=== PATIENT | female | born 1980 | race Caucasian/White ===

== ENCOUNTER 2017-12-30 06:04 | Emergency (ER) | payer BC ==
[2017-12-30 06:13] VITALS: BP 123/81
[2017-12-30] MEDS ORDERED: Ondansetron 4 MG Tab.DIS PO ONE (06:28)
--- NOTE | 2017-12-30 06:34 | EDM.PDOC ---
ED HPI GENERAL MEDICAL PROBLEM - General Chief Complaint: Abdominal Pain Stated Complaint: ABDOMINAL PAIN Time Seen by Provider: 12/30/17 06:22 Source of Information: Reports: Patient History Limitations: Reports: No Limitations - History of Present Illness INITIAL COMMENTS - FREE TEXT/NARRATIVE: The patient presents with nausea, lower abdominal pain, and diarrhea. This all started about a week ago. She had some abdominal pain and diarrhea. The diarrhea is better but she still has some nausea but no vomiting and lower abdominal pain. She has no fever but she does have chills. She has no cough, congestion or runny nose. She does have left ear pain. She has no dysuria or hematuria. She does not think she ate any bad food. She has not been aroudn any one who is sick. She still has her gallbladder and appendix. Onset: Gradual Duration: Week(s): (1) Location: Reports: Abdomen Quality: Reports: Other (crampy) Severity: Mild Improves with: Reports: None Worsens with: Reports: None Associated Symptoms: Reports: Fever/Chills, Nausea/Vomiting. Denies: Chest Pain , Cough, Headaches, Shortness of Breath Middle Abdomen Pain Score (Numeric/FACES): 6 - Related Data Allergies Allergy/AdvReac Type Severity Reaction Status Date / Time No Known Allergies Allergy Verified 08/13/15 02:25 Home Meds: Home Meds Ondansetron [Zofran ODT] 4 mg PO Q6H PRN #20 tab.dis 12/30/17 [Rx] Past Medical History - Past Health History Medical/Surgical History: Denies Medical/Surgical History Social & Family History - Family History Family Medical History: Noncontributory - Tobacco Use Smoking Status *Q: Never Smoker - Caffeine Use Caffeine Use: Reports: None - Recreational Drug Use Recreational Drug Use: No ED ROS GENERAL - Review of Systems Review Of Systems: See Below Constitutional: Reports: Chills. Denies: Fever HEENT: Reports: Ear Pain (left) Respiratory: Reports: No Symptoms Cardiovascular: Reports: No Symptoms Endocrine: Reports: No Symptoms GI/Abdominal: Reports: Abdominal Pain, Diarrhea, Nausea. Denies: Vomiting : Reports: No Symptoms Musculoskeletal: Reports: No Symptoms Skin: Reports: No Symptoms ED EXAM, GI/ABD - Physical Exam Exam: See Below Exam Limited By: No Limitations General Appearance: Alert, No Apparent Distress Ears: Normal External Exam, Other (Mild erythema of the left canal) Nose: Normal Inspection Head: Atraumatic, Normocephalic Neck: Normal Inspection Respiratory/Chest: No Respiratory Distress, Lungs Clear, Normal Breath Sounds Cardiovascular: Regular Rate, Rhythm, No Edema, No Murmur GI/Abdominal Exam: Soft, No Organomegaly, No Mass, Tender (Mild tenderness to the lower abdomen) Back Exam: Normal Inspection Extremities: Normal Inspection Course - Vital Signs Last Recorded V/S: Last Vital Signs Temp 97.8 F 12/30/17 06:09 Pulse 87 12/30/17 06:09 Resp 18 12/30/17 06:09 BP 123/81 12/30/17 06:09 Pulse Ox 100 12/30/17 06:09 - Orders/Labs/Meds Orders: Active Orders 24 hr Category Date Time Status Abdomen 1V Upright [CR] Stat Exams 12/30/17 06:27 Ordered CBC WITH AUTO DIFF [HEME] Stat Lab 12/30/17 06:35 Results FE, TIBC, TRANSFERRIN, FE SAT [CHEM] Stat Lab 12/30/17 07:09 Ordered HCG QUALITATIVE,SERUM [CHEM] Stat Lab 12/30/17 06:35 Received UA W/MICROSCOPIC [URIN] Stat Lab 12/30/17 06:27 Ordered Labs: Laboratory Tests 12/30/17 12/30/17 Range/Units 06:35 06:35 WBC 5.46 (3.98-10.04) K/mm3 RBC 4.52 (3.98-5.22) M/mm3 Hgb 9.9 L (11.2-15.7) gm/L Hct 32.1 L (34.1-44.9) % MCV 71.0 L (79.4-94.8) fl MCH 21.9 L (25.6-32.2) pg MCHC 30.8 L (32.2-35.5) g/dl RDW Std Deviation 43.5 (36.4-46.3) fL Plt Count 322 (182-369) K/mm3 MPV 10.4 (9.4-12.3) fl Neut % (Auto) 53.6 (34.0-71.1) % Lymph % (Auto) 28.6 (19.3-51.7) % [place] % (Auto) 14.5 H (4.7-12.5) % Eos % (Auto) 2.7 (0.7-5.8) Baso % (Auto) 0.4 (0.1-1.2) % Neut # (Auto) 2.93 (1.56-6.13) K/mm3 Lymph # (Auto) 1.56 (1.18-3.74) K/mm3 [place] # (Auto) 0.79 H (0.24-0.36) K/mm3 Eos # (Auto) 0.15 (0.04-0.36) K/mm3 Baso # (Auto) 0.02 (0.01-0.08) K/mm3 Sodium 138 (136-145) mEq/L Potassium 3.2 L (3.5-5.1) mEq/L Chloride 105 (98-107) mEq/L Carbon Dioxide 21 (21-32) mEq/L Anion Gap 15.2 H (5-15) BUN 11 (7-18) mg/dL Creatinine 0.9 (0.55-1.02) mg/dL Est Cr Clr Drug Dosing 83.23 mL/min Estimated GFR (MDRD) > 60 (>60) mL/min BUN/Creatinine Ratio 12.2 L (14-18) Glucose 154 H (74-106) mg/dL Calcium 9.0 (8.5-10.1) mg/dL Total Bilirubin 0.2 (0.2-1.0) mg/dL AST 11 L (15-37) U/L ALT 48 (14-59) U/L Alkaline Phosphatase 108 (46-116) U/L Total Protein 7.7 (6.4-8.2) g/dl Albumin 3.4 (3.4-5.0) g/dl Globulin 4.3 gm/dL Albumin/Globulin Ratio 0.8 L (1-2) Lipase 129 (73-393) U/L Meds: Medications Discontinued Medications Generic Name Dose Route Start Last Admin Trade Name Freq PRN Reason Stop Dose Admin Ondansetron HCl 4 mg 12/30/17 06:28 12/30/17 06:33 Zofran Odt PO 12/30/17 06:29 4 mg ONETIME ONE Administration - Re-Assessments/Exams Free Text/Narrative Re-Assessment/Exam: 12/30/17 06:33 I ordered zofran 4mg ODT, labs, UA and an x-ray of her abdomen. 12/30/17 07:13 Her x-ray looks good. Her WBC was normal. Her Hgb was low at 9.9. It is a microcytic anemia. I have added some labs. I will have her take some iron. The rest of her labs look good. I will discharge her home with some zofran. Departure - Departure Time of Disposition: 07:15 Disposition: Home, Self-Care 01 Condition: Good Clinical Impression: Gastroenteritis Anemia Qualifiers: Anemia type: iron deficiency Iron deficiency anemia type: unspecified iron deficiency Qualified Code(s): D50.9 - Iron deficiency anemia, unspecified - Discharge Information Prescriptions: Ondansetron [Zofran ODT] 4 mg PO Q6H PRN #20 tab.dis PRN Reason: Nausea\vomiting Referrals: Carlos Purvis MD [Primary Care Provider] - 1 Week Forms: ED Department Discharge, ED Return to Work/School Form Additional Instructions: Take an iron supplement daily. Drink plenty of fluids. Take the zofran every 6 hours as needed for nausea or vomiting. Please return if you are worse. - My Orders Last 24 Hours: My Active Orders 12/30/17 06:27 Abdomen 1V Upright [CR] Stat UA W/MICROSCOPIC [URIN] Stat 12/30/17 06:35 CBC WITH AUTO DIFF [HEME] Stat HCG QUALITATIVE,SERUM [CHEM] Stat 12/30/17 07:09 FE, TIBC, TRANSFERRIN, FE SAT [CHEM] Stat - Assessment/Plan Last 24 Hours: My Active Orders 12/30/17 06:27 Abdomen 1V Upright [CR] Stat UA W/MICROSCOPIC [URIN] Stat 12/30/17 06:35 CBC WITH AUTO DIFF [HEME] Stat HCG QUALITATIVE,SERUM [CHEM] Stat 12/30/17 07:09 FE, TIBC, TRANSFERRIN, FE SAT [CHEM] Stat
--- NOTE | 2017-12-30 08:33 | CR ---
Abdomen: Upright view of the abdomen was obtained. Comparison: No prior abdominal x-ray. Bowel gas pattern appears normal. No abnormal calcifications or soft tissue abnormality is seen. No free air is seen. Bony structures are unremarkable. Impression: 1. Unremarkable upright abdominal x-ray. Diagnostic code #1
== END 2017-12-30 07:31 | disposition home or self-care (01) ==
LOC: JD.ED 06:04
DX: K52.9 Noninfective gastroenteritis and colitis, unspecified (principal); D50.9 Iron deficiency anemia, unspecified
CPT/HCPCS: 36415; 74018; 80053; 83540; 83690; 84466; 84703; 85025; 99284; A9270

== ENCOUNTER 2019-05-01 06:35 | Inpatient (IN) | payer BC ==
[~2019-05-01 06:35] MED LIST: Lactated Ringers 1,000 ML IV SCH; Lidocaine 1%/Sod Bicarbonate in NS 8.4% 1 ML Syringe IDERM PRN; Sodium Chloride 0.9% 10 ML Syringe FLUSH PRN
[2019-05-01] MEDS ORDERED: Ondansetron 4 MG/2 ML SDV ONE (07:22)
[2019-05-01] MEDS ORDERED: ceFAZolin 1 GM Vial ONE (07:22)
[2019-05-01] MEDS ORDERED: Rocuronium 50 MG/5 ML Vial ONE (07:22)
[2019-05-01] MEDS ORDERED: Lactated Ringers 1,000 ML ONE (07:22)
[2019-05-01] MEDS ORDERED: Lidocaine 1% 4 ML ONE (07:22)
[2019-05-01] MEDS ORDERED: Midazolam 1 MG/ML 2 ML SDV ONE (07:23)
[2019-05-01] MEDS ORDERED: fentaNYL 250 MCG/5 ML SDV ONE (07:23)
[2019-05-01] MEDS ORDERED: Dexamethasone 4 MG/ML 5 ML MDV ONE (07:23)
[2019-05-01] MEDS ORDERED: Propofol 200 MG/20 ML SDV ONE (07:23)
[2019-05-01] MEDS ORDERED: Ketorolac 30 MG/ML SDV ONE (07:23)
[2019-05-01] MEDS ORDERED: Bupivacaine 0.5% 30 ML SDV ONE (07:31)
[2019-05-01] MEDS ORDERED: Scopolamine 1.5 MG Transdermal Patch TOP ONE (07:45)
--- NOTE | 2019-05-01 07:51 | PCM.PREANE ---
Preanesthetic Assessment - Anesthesia/Transfusion/Family Hx Anesthesia History: No Prior Anesthesia Family History of Anesthesia Reaction: No Transfusion History: No Prior Transfusion(s) - Review of Systems General: No Symptoms Pulmonary: No Symptoms Cardiovascular: No Symptoms Gastrointestinal: No Symptoms Neurological: No Symptoms Other: Reports: None (Anemia Hgb 8.7 this morning, type and cross for 2 units PRBC ordered. ) - Physical Assessment NPO Status Date: 04/30/19 NPO Status Time: 21:00 Vital Signs: Last Vital Signs Temp 37.3 C 05/01/19 06:55 Pulse 64 05/01/19 06:55 Resp 20 05/01/19 06:55 BP 107/58 L 05/01/19 06:55 Pulse Ox 98 05/01/19 06:55 Height: 1.7 m Weight: 74.389 kg ASA Class: 2 Mental Status: Alert & Oriented x3 Airway Class: Mallampati = 2 Dentition: Reports: Normal Dentition Thyro-Mental Finger Breadths: 3 Mouth Opening Finger Breadths: 3 (Jaw will lock at times. ) ROM/Head Extension: Full Lungs: Clear to Auscultation, Normal Respiratory Effort Cardiovascular: Regular Rate, Regular Rhythm - Lab Values: Laboratory Last Values WBC 4.65 K/mm3 (3.98-10.04) 05/01/19 07:17 RBC 4.10 M/mm3 (3.98-5.22) 05/01/19 07:17 Hgb 8.7 gm/dl (11.2-15.7) L D 05/01/19 07:17 Hct 28.8 % (34.1-44.9) L 05/01/19 07:17 MCV 70.2 fl (79.4-94.8) L 05/01/19 07:17 MCH 21.2 pg (25.6-32.2) L 05/01/19 07:17 MCHC 30.2 g/dl (32.2-35.5) L 05/01/19 07:17 RDW Std Deviation 42.5 fL (36.4-46.3) 05/01/19 07:17 Plt Count 308 K/mm3 (182-369) D 05/01/19 07:17 MPV 11.6 fl (9.4-12.3) 05/01/19 07:17 Neut % (Auto) 59.3 % (34.0-71.1) 05/01/19 07:17 Lymph % (Auto) 23.2 % (19.3-51.7) 05/01/19 07:17 [place] % (Auto) 11.0 % (4.7-12.5) 05/01/19 07:17 Eos % (Auto) 5.4 (0.7-5.8) 05/01/19 07:17 Baso % (Auto) 0.9 % (0.1-1.2) 05/01/19 07:17 Neut # (Auto) 2.76 K/mm3 (1.56-6.13) 05/01/19 07:17 Lymph # (Auto) 1.08 K/mm3 (1.18-3.74) L 05/01/19 07:17 [place] # (Auto) 0.51 K/mm3 (0.24-0.36) H 05/01/19 07:17 Eos # (Auto) 0.25 K/mm3 (0.04-0.36) 05/01/19 07:17 Baso # (Auto) 0.04 K/mm3 (0.01-0.08) 05/01/19 07:17 Urine HCG, Qual Negative (NEGATIVE) 05/01/19 06:58 - Allergies Allergies/Adverse Reactions: Allergies Allergy/AdvReac Type Severity Reaction Status Date / Time No Known Allergies Allergy Verified 04/30/19 09:40 - Anesthesia Plan Pre-Op Medication Ordered: Anxiolytic - Acknowledgements Anesthesia Type Planned: General Anesthesia Pt an Appropriate Candidate for the Planned Anesthesia: Yes Alternatives and Risks of Anesthesia Discussed w Pt/Guardian: Yes Pt/Guardian Understands and Agrees with Anesthesia Plan: Yes Additional Comments: Dr. Estrada aware of starting hemoglobin. Type and Cross for 2 units of PRBCs to hold. 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: Other (See Below) Other OB/BYN History: COLPOSCOPY, DYSMENORRHEA, [id number]-PIF SUBSEROUS LEIOMYOMA OF UTERUS, LGSIL, MENORRHAGIA Musculoskeletal History: Reports: None Neurological History: Reports: None Psychiatric History: Reports: None Endocrine/Metabolic History: Reports: None Hematologic History: Reports: Anemia Immunologic History: Reports: None Oncologic (Cancer) History: Reports: None Dermatologic History: Reports: None - Past Surgical History Head Surgeries/Procedures: Reports: None Endocrine Surgical History: Reports: None Neurological Surgical History: Reports: None Musculoskeletal Surgical History: Reports: None Oncologic Surgical History: Reports: None Dermatological Surgical History: Reports: None - SUBSTANCE USE Recreational Drug Use History: No - HOME MEDS Home Medications: Home Meds Ferrous Sulfate [Iron] 325 mg PO DAILY 04/30/19 [History] Ibuprofen 600 mg PO TID PRN 04/30/19 [History] - CURRENT (IN HOUSE) MEDS Current Meds: Current Medications Lactated Ringer's (Ringers, Lactated) 1,000 mls @ 125 mls/hr IV ASDIRECTED DANIA Stop: 05/01/19 23:00 Last Admin: 05/01/19 07:15 Dose: 125 mls/hr Lidocaine/Sodium Bicarbonate (Buffered Lidocaine 1% In Ns 8.4%) 0.25 ml IDERM ONETIME PRN PRN Reason: Prior to IV Start Stop: 05/01/19 18:00 Last Admin: 05/01/19 07:29 Dose: 0.25 ml Sodium Chloride (Saline Flush) 10 ml FLUSH ASDIRECTED PRN PRN Reason: Keep Vein Open Stop: 05/01/19 18:00 Discontinued Medications Bupivacaine HCl (Marcaine 0.5%) Confirm Administered Dose 30 ml .ROUTE .STK-MED ONE Stop: 05/01/19 07:32 Cefazolin Sodium (Ancef) Confirm Administered Dose 2 gm .ROUTE .STK-MED ONE Stop: 05/01/19 07:23 Dexamethasone (Dexamethasone) Confirm Administered Dose 20 mg .ROUTE .STK-MED ONE Stop: 05/01/19 07:24 Fentanyl (Sublimaze) Confirm Administered Dose 250 mcg .ROUTE .STK-MED ONE Stop: 05/01/19 07:24 Lidocaine HCl (Xylocaine-Mpf 1%) Confirm Administered Dose 4 mls @ as directed .ROUTE .STK-MED ONE Stop: 05/01/19 07:23 Lactated Ringer's (Ringers, Lactated) Confirm Administered Dose 1,000 mls @ as directed .ROUTE .STK-MED ONE Stop: 05/01/19 07:23 Ketorolac Tromethamine (Toradol) Confirm Administered Dose 30 mg .ROUTE .STK- MED ONE Stop: 05/01/19 07:24 Midazolam HCl (Versed 1 Mg/Ml) Confirm Administered Dose 2 mg .ROUTE .STK-MED ONE Stop: 05/01/19 07:24 Ondansetron HCl (Zofran) Confirm Administered Dose 4 mg .ROUTE .STK-MED ONE Stop: 05/01/19 07:23 Propofol (Diprivan 20 Ml) Confirm Administered Dose 400 mg .ROUTE .STK-MED ONE Stop: 05/01/19 07:24 Rocuronium Pauline (Zemuron) Confirm Administered Dose 50 mg .ROUTE .STK-MED ONE Stop: 05/01/19 07:23 Scopolamine (Transderm-Scop) 1.5 mg TOP ONETIME ONE Stop: 05/01/19 07:46 Last Admin: 05/01/19 07:48 Dose: 1.5 mg
[2019-05-01] MEDS ORDERED: Ketamine 500 mg/10 ML MDV ONE (08:20)
[2019-05-01] MEDS ORDERED: HYDROmorphone 0.5 MG/0.5 ML Syringe ONE (08:27)
[2019-05-01] MEDS ORDERED: fentaNYL 100 MCG/2 ML SDV IVPUSH PRN (08:34)
[2019-05-01] MEDS ORDERED: Ondansetron 4 MG/2 ML SDV IVPUSH PRN ×2 (08:34→11:09)
[2019-05-01] MEDS ORDERED: HYDROmorphone 0.5 MG/0.5 ML Syringe IVPUSH PRN (08:34)
--- NOTE | 2019-05-01 09:29 | PCM.POSTAN ---
POST ANESTHESIA ASSESSMENT - MENTAL STATUS Mental Status: Alert, Oriented - VITAL SIGNS Vital Signs: Last Vital Signs Temp 37.3 C 05/01/19 06:55 Pulse 64 05/01/19 06:55 Resp 20 05/01/19 06:55 BP 107/58 L 05/01/19 06:55 Pulse Ox 98 05/01/19 06:55 0921 113/68 75 13 96% 98.4F - RESPIRATORY Respiratory Status: Respiratory Rate WNL, Airway Patent, O2 Saturation Stable, Supplemental Oxygen - CARDIOVASCULAR CV Status: Pulse Rate WNL, Blood Pressure Stable - GASTROINTESTINAL GI Status: No Symptoms - PAIN Pain Score: 0 - POST OP HYDRATION Hydration Status: Adequate & Stable
--- NOTE | 2019-05-01 09:36 | PCM.OPNOTE ---
- General Post-Op/Procedure Note Date of Surgery/Procedure: 05/01/19 Operative Procedure(s): Total abdominal hysterectomy bilateral salpingectomy ( neither ovary removed) Pre Op Diagnosis: Anemia, menorrhagia, leiomyomata uteri multiple, LGSIL Pap, [place] 1, menorrhagia Post-Op Diagnosis: Same Anesthesia Technique: General ET Tube Primary Surgeon: Eliazar Estrada Secondary Surgeon: Demetrius Shearer Anesthesia Provider: Gayathri Cristina Estate Attorney: Jorge Crouch (PAS) Estate Attorney: Katia Figueroa (MS3) Reason Estate Attorney Was Necessary: Retraction, Asst. surgery, decrease comorbidity and mortality. Role of Estate Attorney: Retraction, Asst. surgery, decrease comorbidity and mortality. Fluid Replacement, Intraop: 1,300 Output, Urine Amount: 50 EBL in mLs: 100 Drain/Tube Comments:: Villavicencio during surgery removed at end of surgery Complications: None Condition: Good Free Text/Narrative:: Patient was transported to the operating room and placed under general anesthesia with endotracheal intubation supine position. Villavicencio catheter placed gravity drainage. Vaginal prep performed and abdominal prep performed. Patient received Ancef 2 g intravenously prior surgery. SCDs in place and functioning prior surgery. Timeout performed confirming name date of and procedure as total abdominal hysterectomy bilateral salpingectomy and possible removal of one or both ovaries in (neither ovary removed) patient having been prepared and draped in a sterile fashion Pfannenstiel incision was made and care was sharp section to into the anterior fascia peritoneal cavity was entered without difficulty. A medium Jesus retractor was placed. The bowel was packed away with moistened lap tapes 2 with tag these were removed at the end procedure. The uterus was grasped and utilizing Enseal crossclamping and activating and incising the utero-ovarian ligament was transected on the right side. The right fallopian tube was then grasped and elevated and Enseal placed at the mesial salpinx activated and incised and round ligament then crossclamped activated in size with the Enseal. Proceeding caudad crossclamping the broad ligament with the Enseal activating and incising. To the level of the uterine vessels. Same procedure was carried out on the left side. The large fibroid uterus was then transected and the's remaining cervical stump grasped and elevated and utilizing Bartolome clamps crossclamping at the angle bilaterally and incising the vagina was entered without difficulty. Utilizing Jair scissors the remaining cervical stump was removed. The vaginal cuff was then closed with a running locking suture of #1 Vicryl uterosacral cardinal ligaments had also been sutured with #1 Vicryl prior to entry into the vagina. Irrigation was carried out 1 L of saline and 100 mL of distilled water no active bleeding but as a precaution FloSeal was injected at the vaginal cuff to assist in hemostasis. The lap tapes were removed from the abdomen the Jesus retractor was removed. Sponge needle pack and count correct 2. The anterior fascia was closed with #1 PDS running suture. The skin was closed subcuticular 3-0 Monocryl Pop needle. Dermabond Preneo applied. Villavicencio catheter was removed. If patient is unable to void Will replace Villavicencio catheter. I talked with patient's and all questions were answered to his voiced satisfaction. Patient will remain in the hospital overnight.
--- NOTE | 2019-05-01 10:53 | PCM.SN ---
- Free Text/Narrative Note: Resting well. Easily awakened. No vaginal bleeding. Stable. Doing well.
[2019-05-01] MEDS: Acetaminophen/oxyCODONE 325-5 MG Tab PO PRN ×3 (11:32→21:07)
--- NOTE | 2019-05-01 13:02 | PCM48HPAN ---
Post Anesthesia Note - EVALUATION WITHIN 48HRS OF ANESTHETIC Vital Signs in Normal Range: Yes Patient Participated in Evaluation: Yes Respiratory Function Stable: Yes Airway Patent: Yes Cardiovascular Function Stable: Yes Hydration Status Stable: Yes Pain Control Satisfactory: Yes Nausea and Vomiting Control Satisfactory: Yes Mental Status Recovered: Yes Vital Signs: Last Vital Signs Temp 36.8 C 05/01/19 12:02 Pulse 73 05/01/19 11:31 Resp 11 L 05/01/19 10:35 BP 100/74 05/01/19 11:31 Pulse Ox 97 05/01/19 11:31
[2019-05-01] MEDS: Ketorolac 30 MG/ML SDV IVPUSH SCH ×2 (14:26→21:08)
[2019-05-02] MEDS: Ketorolac 30 MG/ML SDV IVPUSH SCH (04:00)
[2019-05-02] MEDS: Acetaminophen/oxyCODONE 325-5 MG Tab PO PRN ×2 (04:01→08:27)
[2019-05-02] MEDS ORDERED: Sodium Chloride 0.9% 250 ML IV SCH (05:15)
[2019-05-02] MEDS ORDERED: Ibuprofen 600 MG Tab PO PRN (09:00)
--- NOTE | 2019-05-02 09:21 | PCM.DCSUM1 ---
Discharge Summary - Hospital Course Free Text/Narrative:: [facility] Post-Op/Procedure Note Patient Name: MARCO A SALEEM Date of : 80 Patient Status: Inpatient Attending Provider: Eliazar Estrada Date: 05/01/19 09:28 Initialization Date: 05/01/19 09:28 - General Post-Op/Procedure Note Date of Surgery/Procedure: 05/01/19 Operative Procedure(s): Total abdominal hysterectomy bilateral salpingectomy ( neither ovary removed) Pre Op Diagnosis: Anemia, menorrhagia, leiomyomata uteri multiple, LGSIL Pap, HILTON 1, menorrhagia Post-Op Diagnosis: Same Anesthesia Technique: General ET Tube Primary Surgeon: Eliazar Estrada Secondary Surgeon: Demetrius Shearer Anesthesia Provider: Gayathri Cristina Flower Cheniller: Jorge Crouch (PAS) Flower Cheniller: Katia Figueroa (MS3) Reason Flower Cheniller Was Necessary: Retraction, Asst. surgery, decrease comorbidity and mortality. Role of Flower Cheniller: Retraction, Asst. surgery, decrease comorbidity and mortality. Fluid Replacement, Intraop: 1,300 Output, Urine Amount: 50 EBL in mLs: 100 Drain/Tube Comments:: Villavicencio during surgery removed at end of surgery Complications: None Condition: Good Free Text/Narrative:: Patient was transported to the operating room and placed under general anesthesia with endotracheal intubation supine position. Villavicencio catheter placed gravity drainage. Vaginal prep performed and abdominal prep performed. Patient received Ancef 2 g intravenously prior surgery. SCDs in place and functioning prior surgery. Timeout performed confirming name date of and procedure as total abdominal hysterectomy bilateral salpingectomy and possible removal of one or both ovaries in (neither ovary removed) patient having been prepared and draped in a sterile fashion Pfannenstiel incision was made and care was sharp section to into the anterior fascia peritoneal cavity was entered without difficulty. A medium Jesus retractor was placed. The bowel was packed away with moistened lap tapes 2 with tag these were removed at the end procedure. The uterus was grasped and utilizing Enseal crossclamping and activating and incising the utero-ovarian ligament was transected on the right side. The right fallopian tube was then grasped and elevated and Enseal placed at the mesial salpinx activated and incised and round ligament then crossclamped activated in size with the Enseal. Proceeding caudad crossclamping the broad ligament with the Enseal activating and incising. To the level of the uterine vessels. Same procedure was carried out on the left side. The large fibroid uterus was then transected and the's remaining cervical stump grasped and elevated and utilizing Bartolome clamps crossclamping at the angle bilaterally and incising the vagina was entered without difficulty. Utilizing Jair scissors the remaining cervical stump was removed. The vaginal cuff was then closed with a running locking suture of #1 Vicryl uterosacral cardinal ligaments had also been sutured with #1 Vicryl prior to entry into the vagina. Irrigation was carried out 1 L of saline and 100 mL of distilled water no active bleeding but as a precaution FloSeal was injected at the vaginal cuff to assist in hemostasis. The lap tapes were removed from the abdomen the Jesus retractor was removed. Sponge needle pack and count correct 2. The anterior fascia was closed with #1 PDS running suture. The skin was closed subcuticular 3-0 Monocryl Pop needle. Dermabond Preneo applied. Villavicencio catheter was removed. If patient is unable to void Will replace Villavicencio catheter. I talked with patient's and all questions were answered to his voiced satisfaction. Patient will remain in the hospital overnight. Did well through the night. Hgb preop 8.7 and this morning after surgery 7.4. Patient pale, and dizziness, given two units packed RBGs. Hgb after completion of both transfusions. Dismiss to see in office in two weeks. HPI Initial Comments: [facility] Post-Op/Procedure Note Patient Name: MARCO A SALEEM Date of : 80 Patient Status: Inpatient Attending Provider: Eliazar Estrada Date: 05/01/19 09:28 Initialization Date: 05/01/19 09:28 - General Post-Op/Procedure Note Date of Surgery/Procedure: 05/01/19 Operative Procedure(s): Total abdominal hysterectomy bilateral salpingectomy ( neither ovary removed) Pre Op Diagnosis: Anemia, menorrhagia, leiomyomata uteri multiple, LGSIL Pap, HILTON 1, menorrhagia Post-Op Diagnosis: Same Anesthesia Technique: General ET Tube Primary Surgeon: Eliazar Estrada Secondary Surgeon: Demetrius Shearer Anesthesia Provider: Gayathri Cristina Flower Cheniller: Jorge Crouch (PAS) Flower Cheniller: Katia Figueroa (MS3) Reason Flower Cheniller Was Necessary: Retraction, Asst. surgery, decrease comorbidity and mortality. Role of Flower Cheniller: Retraction, Asst. surgery, decrease comorbidity and mortality. Fluid Replacement, Intraop: 1,300 Output, Urine Amount: 50 EBL in mLs: 100 Drain/Tube Comments:: Villavicencio during surgery removed at end of surgery Complications: None Condition: Good Free Text/Narrative:: Patient was transported to the operating room and placed under general anesthesia with endotracheal intubation supine position. Villavicencio catheter placed gravity drainage. Vaginal prep performed and abdominal prep performed. Patient received Ancef 2 g intravenously prior surgery. SCDs in place and functioning prior surgery. Timeout performed confirming name date of and procedure as total abdominal hysterectomy bilateral salpingectomy and possible removal of one or both ovaries in (neither ovary removed) patient having been prepared and draped in a sterile fashion Pfannenstiel incision was made and care was sharp section to into the anterior fascia peritoneal cavity was entered without difficulty. A medium Jesus retractor was placed. The bowel was packed away with moistened lap tapes 2 with tag these were removed at the end procedure. The uterus was grasped and utilizing Enseal crossclamping and activating and incising the utero-ovarian ligament was transected on the right side. The right fallopian tube was then grasped and elevated and Enseal placed at the mesial salpinx activated and incised and round ligament then crossclamped activated in size with the Enseal. Proceeding caudad crossclamping the broad ligament with the Enseal activating and incising. To the level of the uterine vessels. Same procedure was carried out on the left side. The large fibroid uterus was then transected and the's remaining cervical stump grasped and elevated and utilizing Bartolome clamps crossclamping at the angle bilaterally and incising the vagina was entered without difficulty. Utilizing Jair scissors the remaining cervical stump was removed. The vaginal cuff was then closed with a running locking suture of #1 Vicryl uterosacral cardinal ligaments had also been sutured with #1 Vicryl prior to entry into the vagina. Irrigation was carried out 1 L of saline and 100 mL of distilled water no active bleeding but as a precaution FloSeal was injected at the vaginal cuff to assist in hemostasis. The lap tapes were removed from the abdomen the Jeuss retractor was removed. Sponge needle pack and count correct 2. The anterior fascia was closed with #1 PDS running suture. The skin was closed subcuticular 3-0 Monocryl Pop needle. Dermabond Preneo applied. Villavicencio catheter was removed. If patient is unable to void Will replace Villavicencio catheter. I talked with patient's and all questions were answered to his voiced satisfaction. Patient will remain in the hospital overnight. Did well through the night. Hgb preop 8.7 and this morning after surgery 7.4. Patient pale, and dizziness, given two units packed RBGs. Hgb after completion of both transfusions. Dismiss to see in office in two weeks. Brief History: [facility] . Post-Op/Procedure Note. [id number]. Date of : Patient Status: Inpatient. Attending Provider: Eliazar Estradaccount Number: [id number]. Date: 05/01/19 09:28Initialization Date: 05/01/19 09:28. - General Post-Op/Procedure Note. Date of Surgery/Procedure: 05/01/19. Operative Procedure(s): Total abdominal hysterectomy bilateral salpingectomy ( neither ovary removed). Pre Op Diagnosis: Anemia, menorrhagia, leiomyomata uteri multiple, LGSIL Pap, HILTON 1, menorrhagia. Post-Op Diagnosis: Same. Anesthesia Technique: General ET Tube. Primary Surgeon: Eliazar Estrada. Secondary Surgeon: Demetrius Shearer. Anesthesia Provider: Gayathri Cristina. Flower Cheniller: Jorge Crouch (PAS). Flower Cheniller: Katia Figueroa (MS3). Reason Flower Cheniller Was Necessary: Retraction, Asst. surgery, decrease comorbidity and mortality. Role of Flower Cheniller: Retraction, Asst. surgery, decrease comorbidity and mortality. Fluid Replacement, Intraop: 1,300. Output , Urine Amount: 50. EBL in mLs: 100. Drain/Tube Comments:: Villavicencio during surgery removed at end of surgery. Complications: None. Condition: Good. Free Text/Narrative:: Patient was transported to the operating room and placed under general anesthesia with endotracheal intubation supine position. Villavicencio catheter placed gravity drainage. Vaginal prep performed and abdominal prep performed. Patient received Ancef 2 g intravenously prior surgery. SCDs in place and functioning prior surgery. Timeout performed confirming name date of and procedure as total abdominal hysterectomy bilateral salpingectomy and possible removal of one or both ovaries in (neither ovary removed) patient having been prepared and draped in a sterile fashion Pfannenstiel incision was made and care was sharp section to into the anterior fascia peritoneal cavity was entered without difficulty. A medium Jesus retractor was placed. The bowel was packed away with moistened lap tapes 2 with tag these were removed at the end procedure. The uterus was grasped and utilizing Enseal crossclamping and activating and incising the utero-ovarian ligament was transected on the right side. The right fallopian tube was then grasped and elevated and Enseal placed at the mesial salpinx activated and incised and round ligament then crossclamped activated in size with the Enseal. Proceeding caudad crossclamping the broad ligament with the Enseal activating and incising. To the level of the uterine vessels. Same procedure was carried out on the left side. The large fibroid uterus was then transected and the's remaining cervical stump grasped and elevated and utilizing Bartolome clamps crossclamping at the angle bilaterally and incising the vagina was entered without difficulty. Utilizing Jair scissors the remaining cervical stump was removed. The vaginal cuff was then closed with a running locking suture of #1 Vicryl uterosacral cardinal ligaments had also been sutured with #1 Vicryl prior to entry into the vagina. Irrigation was carried out 1 L of saline and 100 mL of distilled water no active bleeding but as a precaution FloSeal was injected at the vaginal cuff to assist in hemostasis. The lap tapes were removed from the abdomen the Jesus retractor was removed. Sponge needle pack and count correct 2. The anterior fascia was closed with #1 PDS running suture. The skin was closed subcuticular 3 -0 Monocryl Pop needle. Dermabond Preneo applied. Villavicencio catheter was removed. If patient is unable to void Will replace Villavicencio catheter. I talked with patient 's and all questions were answered to his voiced satisfaction. Patient will remain in the hospital overnight. Did well through the night. Hgb preop 8.7 and this morning after surgery 7.4. Patient pale, and dizziness, given two units packed RBGs. Hgb after completion of both transfusions. Dismiss to see in office in two weeks. Diagnosis: Stroke: No - Discharge Data Discharge Date: 05/02/19 Discharge Disposition: Home, Self-Care 01 Condition: Good - Referral to Home Health Primary Care Physician: Treva Garcia MD - Discharge Diagnosis/Problem(s) (1) Dysmenorrhea SNOMED Code(s): 006959899 ICD Code: N94.6 - DYSMENORRHEA, UNSPECIFIED Status: Acute Current Visit: Yes (2) Low grade squamous intraepithelial lesion on cytologic smear of cervix ( LGSIL) SNOMED Code(s): 134301076 ICD Code: R87.612 - LOW GRADE INTREPITH LESION CYTO SMR CRVX (LGSIL) Status : Acute Current Visit: Yes (3) Excessive and frequent menstruation with irregular cycle SNOMED Code(s): 261097682 ICD Code: N92.1 - EXCESSIVE AND FREQUENT MENSTRUATION WITH IRREGULAR CYCLE Status: Acute Current Visit: Yes (4) Leiomyoma of body of uterus SNOMED Code(s): 37662834 ICD Code: D25.9 - LEIOMYOMA OF UTERUS, UNSPECIFIED Status: Acute Current Visit: Yes (5) Leiomyoma, intramural SNOMED Code(s): 69265779 ICD Code: D25.1 - INTRAMURAL LEIOMYOMA OF UTERUS Status: Acute Current Visit: Yes (6) Leiomyoma, subserous SNOMED Code(s): 60174475 ICD Code: D25.2 - SUBSEROSAL LEIOMYOMA OF UTERUS Status: Acute Current Visit: Yes (7) Submucous leiomyoma of uterus SNOMED Code(s): 31639036 ICD Code: D25.0 - SUBMUCOUS LEIOMYOMA OF UTERUS Status: Acute Current Visit: Yes (8) HILTON I (cervical intraepithelial neoplasia I) SNOMED Code(s): 746890415 ICD Code: N87.0 - MILD CERVICAL DYSPLASIA Status: Acute Current Visit: Yes - Patient Summary/Data Operative Procedure(s) Performed: Total abdominal hysterectomy bilateral salpingectomy (neither ovary removed) Complications: chronic anemia with drop in Hgb from 8.7 preop to 7.4 AM after surgery. Transfused two units packed RBCs. Consults: none Hospital Course: uneventful - Patient Instructions Driving: Do Not Drive (x14 days) Showering/Bathing: May Shower, No Tub Bathing/Swimming (x6 weeks) Wound/Incision Care: Keep Operative Site/Wound Site Clean and Dry Notify Provider of: Fever, Increased Pain, Swelling and Redness, Nausea and/or Vomiting - Discharge Plan *PRESCRIPTION DRUG MONITORING PROGRAM REVIEWED*: Yes *COPY OF PRESCRIPTION DRUG MONITORING REPORT IN PATIENT CHAI: Yes Prescriptions/Med Rec: Acetaminophen/oxyCODONE [Percocet 325-5 MG] 1 tab PO Q6H PRN #20 tablet PRN Reason: Pain (Moderate 4-6) Naproxen Sodium [Aleve] 220 mg PO Q6H #50 capsule Home Medications: Home Meds Ferrous Sulfate [Iron] 325 mg PO DAILY 04/30/19 [History] Ibuprofen 600 mg PO TID PRN 04/30/19 [History] Acetaminophen/oxyCODONE [Percocet 325-5 MG] 1 tab PO Q6H PRN #20 tablet [Rx] Naproxen Sodium [Aleve] 220 mg PO Q6H #50 capsule 05/02/19 [Rx] Referrals: Eliazar Estrada MD [Physician] - (has appointment in two weeks) - Discharge Summary/Plan Comment DC Time >30 min.: No - Patient Data Vitals - Most Recent: Last Vital Signs Temp 99.1 F 05/02/19 09:03 Pulse 51 L 05/02/19 09:03 Resp 16 05/02/19 09:03 BP 105/62 05/02/19 09:03 Pulse Ox 99 05/02/19 06:02 Weight - Most Recent: 168 lb 6.4 oz I&O - Last 24 hours: Intake & Output 05/01/19 05/02/19 05/02/19 22:59 06:59 14:59 Intake Total 400 800 319 Output Total 900 700 Balance -500 100 319 Lab Results - Last 24 hrs: Laboratory Results - last 24 hr 05/01/19 05/02/19 Range/Units 07:17 04:12 WBC 8.84 (3.98-10.04) K/mm3 RBC 3.53 L (3.98-5.22) M/mm3 Hgb 7.4 L (11.2-15.7) gm/dl Hct 25.1 L (34.1-44.9) % MCV 71.1 L (79.4-94.8) fl MCH 21.0 L (25.6-32.2) pg MCHC 29.5 L (32.2-35.5) g/dl RDW Std Deviation 42.6 (36.4-46.3) fL Plt Count 295 (182-369) K/mm3 MPV 11.4 (9.4-12.3) fl Neut % (Auto) 68.7 (34.0-71.1) % Lymph % (Auto) 19.2 L (19.3-51.7) % [place] % (Auto) 11.8 (4.7-12.5) % Eos % (Auto) 0.2 L (0.7-5.8) Baso % (Auto) 0.1 (0.1-1.2) % Neut # (Auto) 6.07 (1.56-6.13) K/mm3 Lymph # (Auto) 1.70 (1.18-3.74) K/mm3 [place] # (Auto) 1.04 H (0.24-0.36) K/mm3 Eos # (Auto) 0.02 L (0.04-0.36) K/mm3 Baso # (Auto) 0.01 (0.01-0.08) K/mm3 Manual Slide Review Abnormal smear Blood Type O POSITIVE Gel Antibody Screen Negative Crossmatch See Detail Med Orders - Current: Current Medications Sodium Chloride (Normal Saline) 250 mls @ 50 mls/hr IV ASDIRECTED [facility] Last Admin: 05/02/19 05:49 Dose: 50 mls/hr Ibuprofen (Motrin) 600 mg PO Q6H PRN PRN Reason: Pain (mild 1-3) Ondansetron HCl (Zofran) 4 mg IVPUSH Q4H PRN PRN Reason: Nausea/Vomiting Oxycodone/Acetaminophen (Percocet 325-5 Mg) 2 tab PO Q4H PRN PRN Reason: Pain (moderate 4-6) Last Admin: 05/02/19 08:27 Dose: 2 tab Discontinued Medications Bupivacaine HCl (Marcaine 0.5%) Confirm Administered Dose 30 ml .ROUTE .STK-MED ONE Stop: 05/01/19 07:32 Last Admin: 05/01/19 08:21 Dose: 20 ml Cefazolin Sodium (Ancef) Confirm Administered Dose 2 gm .ROUTE .STK-MED ONE Stop: 05/01/19 07:23 Dexamethasone (Dexamethasone) Confirm Administered Dose 20 mg .ROUTE .STK-MED ONE Stop: 05/01/19 07:24 Fentanyl (Sublimaze) Confirm Administered Dose 250 mcg .ROUTE .STK-MED ONE Stop: 05/01/19 07:24 Fentanyl (Sublimaze) 50 mcg IVPUSH Q5M PRN PRN Reason: Pain Stop: 05/01/19 10:30 Last Admin: 05/01/19 09:30 Dose: 50 mcg Hydromorphone HCl (Dilaudid) Confirm Administered Dose 0.5 mg .ROUTE .STK-MED ONE Stop: 05/01/19 08:28 Hydromorphone HCl (Dilaudid) 0.5 mg IVPUSH Q10M PRN PRN Reason: Pain (severe 7-10) Stop: 05/01/19 10:30 Last Admin: 05/01/19 09:41 Dose: 0.5 mg Lactated Ringer's (Ringers, Lactated) 1,000 mls @ 125 mls/hr IV ASDIRECTED [facility] Stop: 05/01/19 23:00 Last Admin: 05/01/19 07:15 Dose: 125 mls/hr Lidocaine HCl (Xylocaine-Mpf 1%) Confirm Administered Dose 4 mls @ as directed .ROUTE .STK-MED ONE Stop: 05/01/19 07:23 Lactated Ringer's (Ringers, Lactated) Confirm Administered Dose 1,000 mls @ as directed .ROUTE .STK-MED ONE Stop: 05/01/19 07:23 Ketamine HCl (Ketalar) Confirm Administered Dose 500 mg .ROUTE .STK-MED ONE Stop: 05/01/19 08:21 Ketorolac Tromethamine (Toradol) Confirm Administered Dose 30 mg .ROUTE .STK- MED ONE Stop: 05/01/19 07:24 Ketorolac Tromethamine (Toradol) 30 mg IVPUSH Q6H [facility] Stop: 05/02/19 03:01 Last Admin: 05/02/19 04:00 Dose: 30 mg Lidocaine/Sodium Bicarbonate (Buffered Lidocaine 1% In Ns 8.4%) 0.25 ml IDERM ONETIME PRN PRN Reason: Prior to IV Start Stop: 05/01/19 18:00 Last Admin: 05/01/19 07:29 Dose: 0.25 ml Midazolam HCl (Versed 1 Mg/Ml) Confirm Administered Dose 2 mg .ROUTE .STK-MED ONE Stop: 05/01/19 07:24 Miscellaneous Information (Remove Patch) 0 ea TRDERM ONETIME ONE Stop: 05/04/19 08:01 Ondansetron HCl (Zofran) Confirm Administered Dose 4 mg .ROUTE .STK-MED ONE Stop: 05/01/19 07:23 Ondansetron HCl (Zofran) 4 mg IVPUSH ONETIME PRN PRN Reason: Nausea/Vomiting Stop: 05/01/19 10:30 Propofol (Diprivan 20 Ml) Confirm Administered Dose 400 mg .ROUTE .STK-MED ONE Stop: 05/01/19 07:24 Rocuronium [place] (Zemuron) Confirm Administered Dose 50 mg .ROUTE .STK-MED ONE Stop: 05/01/19 07:23 Scopolamine (Transderm-Scop) 1.5 mg TOP ONETIME ONE Stop: 05/01/19 07:46 Last Admin: 05/01/19 07:48 Dose: 1.5 mg Sodium Chloride (Saline Flush) 10 ml FLUSH ASDIRECTED PRN PRN Reason: Keep Vein Open Stop: 05/01/19 18:00
[2019-05-02 11:35] VITALS: BP 103/70; PULSE 63
== END 2019-05-02 14:15 | disposition home or self-care (01) | DRG 519 ==
LOC: JD.MS 06:35
PROVIDERS: ADMIT Obstetrics & Gynecology; ATTEND Obstetrics & Gynecology
PROC: 0UT90ZZ Resection of Uterus, Open Approach (ICD-10-PCS; principal; 2019-05-01)
PROC: 0UT70ZZ Resection of Bilateral Fallopian Tubes, Open Approach (ICD-10-PCS; 2019-05-01)
PROC: 30233N1 Transfusion of Nonautologous Red Blood Cells into Peripheral Vein, Percutaneous Approach (ICD-10-PCS; 2019-05-01)
DX: D25.1 Intramural leiomyoma of uterus (principal); D25.0 Submucous leiomyoma of uterus; D25.2 Subserosal leiomyoma of uterus; N94.6 Dysmenorrhea, unspecified; N92.1 Excessive and frequent menstruation with irregular cycle; D64.9 Anemia, unspecified; D25.9 Leiomyoma of uterus, unspecified; N87.0 Mild cervical dysplasia
CPT/HCPCS: 00840; 36415; 36430; 81025; 85025; 86850; 86900; 86901; 86922; A9270-GY; J0690; J1100; J1170; J1885; J2001; J2250; J2405; J2704; J3010; J3490; J7050; J7120; P9016